=== PATIENT | male | born 1955 | race Caucasian/White ===

== ENCOUNTER 2023-03-31 17:26 | Emergency (ER) | payer MEDICARE, SELFPAY ==
[2023-03-31 17:30] VITALS: BP 127/92; PULSE 79; RESP 20; TEMP 36.8; O2SAT 99
--- NOTE | 2023-03-31 17:30 | DI.RAD_ITS ---
Exam(s) XR HAND LT COMPLETE EXAM: XR HAND LT COMPLETE CLINICAL HISTORY: Hit thumb while driving tractor. TECHNIQUE: 2D digital imaging was performed. Three views. COMPARISON: No exams were available for comparison FINDINGS: BONES: No acute fracture is present. No bony destructive lesion is seen. JOINTS: The dislocation dorsally of the distal phalanx of the thumb with respect to the proximal phal anx. Question of a small fracture fragment at the volar aspect of the head of the proximal phalanx. SOFT TISSUE: Normal. IMPRESSION: Dislocation at the 1st interphalangeal joint. Probable fracture fragment. DATA REPOSITORY: RADIATION DOSE DELIVERED:
--- NOTE | 2023-03-31 18:54 | ED.GENADUL_ITS ---
Discharge Plan Disposition Patient Disposition: Home Condition: Good Discharge Details Clinical Impression: Closed dislocation of thumb Primary Care Provider: Rosario,Local ED Provider: Letha Hein Discharge Instructions Instructions: Finger Dislocation (ED) Additional Instructions: Take tylenol and ibuprofen over the counter as needed for pain; follow the directions on the bottle. Return to the emergency department for new or worsening symptoms, including severe pain, numbness/tingling, or if you have any other concerns. Medical Decision Making 67yo male presenting with left thumb pain and deformity. Vital signs reassuring, denies pain or injury elsewhere. Neurovascular intact. XR independently reviewed, dislocated 1st IP joint, agree with radiology read below. Given fracture fragment, orthopedics consulted (see their note for details); reduced at bedside. No followup required. On reassessment remains well appearing and neurovascular intact. Patient declines to wait for post-reduction films. Discharged home; discharge instructions including return precautions were reviewed with patient who verbalized understanding. All questions were answered and they are in full agreement with the plan. Imaging Data Radiologic Study: Imaging: X-Ray Radiologist's impression: IMPRESSION: Dislocation at the 1st interphalangeal joint.? Probable fracture fragment. HPI General Mode of arrival: ambulatory . Date/Time Provider Initiated Documentation: 03/31/23 17:34 . Limitations to Documentation: no limitations . Information obtained by: patient . HPI Narrative: 67yo male presenting with left thumb pain and deformity. Was driving tractor, branch fell and struck his thumb (not sure exactly how it impacted). Denies pain or injury elsewhere. No numbness or tingling. Is able to move all digits except tip of thumb. He is otherwise in his usual state of health. Related Data Allergies Allergy/AdvReac Type Severity Reaction Status Date / Time No Known Allergies Allergy Unverified 03/31/23 17:33 General Stated Complaint: Orthopedic RAYNE: 4 Review of Systems Narrative: see HPI PFS All Active Problems (Updated 03/31/23 @ 19:23 by Letha Hein MD) Closed dislocation of thumb (Acute) Social History Smoking risk assessment performed?: No Do you feel safe at home: Yes Do you feel safe in your relationship?: Yes Exam Narrative Exam Narrative: General: Alert, well appearing, well nourished, in no acute distress. Head: Normocephalic, atraumatic Neck: Trachea midline, Neck supple. ENT: MMM. No oropharygeal lesions or exudate. Cardiac: RRR, no murmurs appreciated Resp: No respiratory distress. CTAB. Abd: Soft, non-distended, nontender : No suprapubic tenderness. No CVA tenderness. Extremities: Left hand: Left distal thumb deformity. Bruising to palmar aspect of distal interphalangeal joint. No break in skin. Sensation and capillary refill intact tip of thumb and throughout hand. Intact motion aside from distal phalanx of 1st digit. Neurologic: GCS 15. Moves all extremities freely against gravity Course Vital Signs Vital signs: Vital Signs Temperature 36.8 C 03/31/23 17:30 Pulse 79 03/31/23 17:30 Respiratory Rate 20 03/31/23 17:30 Blood Pressure 127/92 H 03/31/23 17:30 Pulse Oximetry 99 03/31/23 17:30 Temperature 36.8 C 03/31/23 17:30 Pulse 79 03/31/23 17:30 Respiratory Rate 20 03/31/23 17:30 Respiratory Effort Normal 03/31/23 17:35 Blood Pressure 127/92 H 03/31/23 17:30 Blood Pressure Position Sitting 03/31/23 17:30 Pulse Oximetry 99 03/31/23 17:30 Oxygen Delivery Method Room Air 03/31/23 17:30 Oxygen Flow Rate 0 03/31/23 17:30 Pain Level 7 03/31/23 17:30
--- NOTE | 2023-03-31 20:02 | W.ORTHOCONSU ---
Date of service: 03/31/23 Time of Service: 19:00 History of Present Illness History of Present Illness Chief Complaint: Left Thumb Dislocation Narrative: Juve is a 67-year-old who was working on his tractor when he caught a small branch awkwardly with his left thumb. He had immediate pain and some deformity with inability to flex the left thumb. He came into the emergency department for evaluation and was diagnosed with dorsally displaced distal phalanx of the left thumb. He denies any previous issues with the left hand of the left thumb. He currently reports no numbness or tingling. Consult Reason Left thumb IP dislocation Assessment and Plan Assessment and plan (1) Closed dislocation of thumb: Status: Acute Assessment and plan: Juve is a 67-year-old active male who suffered a dislocation of his left thumb IP joint after awkwardly hit a small branch while on his tractor. It is been successfully reduced. This was confirmed clinically. Due to the busyness of the ED and patient preference, no postreduction x-ray was obtained. Once again, he was able to fully move his thumb and it was clinically reduced. I recommend he use a Coban wrap for the next 1 week. May remove it for hygiene and then slowly resume normal function of the thumb without Coban wrap. If he has any residual pain or dysfunction of the left thumb I be happy to see him back in clinic although he does not need formal follow-up. Review of Systems All systems reviewed & are unremarkable except as noted in HPI and below PFSH All Active Problems Closed dislocation of thumb (Acute) Social History Smoking risk assessment performed?: No Do you feel safe at home: Yes Do you feel safe in your relationship?: Yes Exam Narrative Exam Narrative: No acute distress. Alert orient x3. Evaluation of left hand and thumb shows some mild ecchymosis over the palmar aspect of the flexion crease of the IP joint of the left thumb. No open skin lesions. Mild swelling. He is unable to demonstrate any active flexion or extension of the thumb. I then performed a digital block of the left thumb utilizing 10 cc of 1% lidocaine. After this had a chance to set up I was able to reduce the IP joint by hyperextension and palmar directed force of the distal phalanx. There is a palpable and audible clunk. He is unable to demonstrate active thumb extension and flexion. I wrapped the thumb with a Coban wrap over the IP joint of the thumb. Results Last Vital Signs Temp 36.8 C 03/31/23 17:30 Pulse 79 03/31/23 17:30 Resp 20 03/31/23 17:30 BP 127/92 H 03/31/23 17:30 Pulse Ox 99 03/31/23 17:30 Imaging Imaging Studies: X-ray of the left thumb shows a dorsally displaced thumb IP joint dislocation. No significant fracture appreciated. No significant signs of arthritis of the thumb.
== END 2023-03-31 19:31 | disposition home or self-care (01) ==
PROVIDERS: Emergency Provider Student in an Organized Health Care Education/Training Program
DX: S63.102A Unspecified subluxation of left thumb, initial encounter (principal); W22.8XXA Striking against or struck by other objects, initial encounter; V84.5XXA Driver of special agricultural vehicle injured in nontraffic accident, initial encounter; M25.542 Pain in joints of left hand
CPT/HCPCS: 26720; 64450; 99283; 99285; 73130; 99284